=== PATIENT | female | born 1990 | race Caucasian/White ===

== ENCOUNTER 2016-05-06 20:34 | Outpatient (CLI) | payer OTHER | END 2016-05-07 13:10 | disposition home or self-care (01) | LOC: GENOP 20:34 | DX: O21.2 Late vomiting of pregnancy (principal); O21.0 Mild hyperemesis gravidarum; Z3A.39 39 weeks gestation of pregnancy | CPT/HCPCS: 81001; 96360; 96361; J2300; J7120 ==

== ENCOUNTER 2016-05-18 05:33 | Inpatient (IN) | payer OTHER ==
[2016-05-18 06:14] LABS: HEMOGLOBIN 12.8 gm/dl (12.3-15.3); RED BLOOD COUNT 4.04 M/UL (4.00-5.10); WHITE BLOOD COUNT 14.4 K/UL (4.5-11.0)
[2016-05-19 04:34] LABS: HEMOGLOBIN 11.5 gm/dl (12.3-15.3)
[2016-05-20] MEDS ORDERED: NORCO 5-325 TA1 EACH PO (12:06)
== END 2016-05-20 13:47 | disposition home or self-care (01) | DRG 775 ==
LOC: GENOP 05:33 → OB 06:30
PROVIDERS: ADMIT Obstetrics & Gynecology
PROC: 10E0XZZ Delivery of Products of Conception, External Approach (ICD-10-PCS; principal; 2016-05-18)
PROC: 10907ZC Drainage of Amniotic Fluid, Therapeutic from Products of Conception, Via Natural or Artificial Opening (ICD-10-PCS; principal; 2016-05-18)
DX: O34.219 Maternal care for unspecified type scar from previous cesarean delivery (principal); N85.8 Other specified noninflammatory disorders of uterus; O99.02 Anemia complicating childbirth; D64.9 Anemia, unspecified; Z3A.40 40 weeks gestation of pregnancy; Z37.0 Single live birth; Z28.21 Immunization not carried out because of patient refusal; Z82.49 Family history of ischemic heart disease and other diseases of the circulatory system
CPT/HCPCS: 36415; 80074; 81001; 82800; 85014; 85018; 85025; 87390; J2300; J2590